=== PATIENT | female | born 1985 | race Caucasian/White ===

== ENCOUNTER 2017-04-14 09:35 | Emergency (ER) | payer SELFPAY ==
--- NOTE | ~2017-04-14 | ER ---
PATIENT'S NAME: JANKI REN [facility] AGE: 31 Y [address] ROOM: [place] [address] LOCATION: [facility] ADMIT DATE: 04/14/2017 ER/Outpatient Report DISCHARGE DATE: 04/14/2017 FAMILY PHYSICIAN: Colten Miller MD ATTENDING PHYSICIAN: Justin Browning CHIEF COMPLAINT: Left ankle pain. HISTORY OF PRESENT ILLNESS: The patient states that she rolled her ankle on the way into work on Friday around 11:30 in the morning. She was seen at [facility] for x-rays on Friday. She feels as though it is not improving like they said it would, so she came here. She has been using crutches. She has been intermittently using an Jaison wrap. She has taken some ibuprofen. She has been trying to keep off it. She has not followed up with her primary care provider. PAST MEDICAL HISTORY: Documented on the record and reviewed by me. SOCIAL HISTORY: Documented on the record and reviewed by me. MEDICATIONS: Documented on the record and reviewed by me. ALLERGIES: DOCUMENTED ON THE RECORD AND REVIEWED BY ME. REVIEW OF SYSTEMS: All systems were reviewed and negative except as noted in the HPI. PHYSICAL EXAMINATION: VITAL SIGNS: Blood pressure 116/71, pulse 72, respiratory rate 16, temperature 97.2, and SpO2 is 95% on room air. Pain is rated 8/10. GENERAL: An age appropriate female, upright on the exam table, in no apparent pain or distress. HEENT: Normocephalic and atraumatic. Eyes are PERRL. Oropharynx is clear. NECK: Supple. CHEST: Even and unlabored respirations. Heart rate is regular. ABDOMEN: Obese, but otherwise normal to inspection. EXTREMITIES: Well formed and well perfused. The left ankle is notable for tenderness at the lateral malleolus with some edema. No ecchymosis appreciated. No erythema or warmth appreciated at the joint. There is a mild PATIENT'S NAME: JANKI REN [facility] AGE: 31 Y [address] ROOM: [place] [address] LOCATION: [facility] ADMIT DATE: 04/14/2017 ER/Outpatient Report DISCHARGE DATE: 04/14/2017 FAMILY PHYSICIAN: Colten Miller MD ATTENDING PHYSICIAN: Justin Browning limitation of the range of motion of the joint, but no ligamentous instability on stressing of the joint. The foot is otherwise neurovascularly intact. SKIN: Grossly intact otherwise. LABORATORY DATA AND X-RAYS: Plain films of the left ankle were obtained as well as the tib-fib. I reviewed them, saw no fracture, and also confirmed with Radiology. EMERGENCY DEPARTMENT COURSE: We placed the patient in a walking boot after I demonstrated appropriate technique for wrapping the foot. Discussed strategies to minimize edema of the foot. Activity as tolerated. 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 She should follow up on or Friday if not noting significant improvement with the above strategies as well as scheduled ibuprofen and Tylenol. MD BILL FLORENCE/abimael /[id number] d: 04/14/17 1205 t: 04/29/17 0909, OUTPATIENT REPORT
== END 2017-04-14 10:43 | disposition disaster alternative care site (69) ==
LOC: GACC 09:35
DX: M25.572 Pain in left ankle and joints of left foot (principal); I10 Essential (primary) hypertension; F20.9 Schizophrenia, unspecified; F31.9 Bipolar disorder, unspecified; F17.210 Nicotine dependence, cigarettes, uncomplicated; F41.9 Anxiety disorder, unspecified; Z90.89 Acquired absence of other organs; Z88.0 Allergy status to penicillin; Z88.1 Allergy status to other antibiotic agents; Z79.899 Other long term (current) drug therapy

== ENCOUNTER 2017-04-18 09:27 | Emergency (ER) | payer SELFPAY ==
--- NOTE | ~2017-04-18 | ER ---
PATIENT'S NAME: ERICA SANCHEZ [facility] AGE: 31 Y [address] ROOM: [place] [address] LOCATION: ED ADMIT DATE: 04/18/2017 ER/Outpatient Report DISCHARGE DATE: 04/18/2017 FAMILY PHYSICIAN: Colten Miller MD ATTENDING PHYSICIAN: Latoya Uribe Time of Arrival: 0927 hours. Time of Evaluation: 0946 hours. IDENTIFICATION: A 31-year-old female. CHIEF COMPLAINT: Right foot swelling. HISTORY OF PRESENT ILLNESS: The patient is a 31-year-old female, who injured her left ankle on Friday on her way to work around 11:30 a.m. She was evaluated at [facility] with negative x-rays, placed in the Jaison wrap, and then came into our emergency room on April 14, 2017. She was seen and evaluated, had an x-ray, which was negative for fracture, placed in a walking boot and was discharged home. Today, she has had some numbness and tingling in that foot and is having pain and swelling. No new injury. ALLERGIES: TO AMOXICILLIN AND PENICILLIN. CURRENT MEDICATIONS: 1. Wellbutrin. 2. Klonopin. 3. Latuda. 4. Propranolol. 5. Motrin. 6. Tylenol. MEDICAL PROBLEMS: Bipolar disease, hypertension, chronic back pain. SOCIAL HISTORY: The patient is living at [facility] here in [place]. Tobacco use, the patient denies. Old records reflect history of tobacco use. Alcohol use, denies. Drug use, denies. FAMILY HISTORY: No pertinent family history. PATIENT'S NAME: JANKI REN [facility] AGE: 31 Y [address] ROOM: [place] [address] LOCATION: ED ADMIT DATE: 04/18/2017 ER/Outpatient Report DISCHARGE DATE: 04/18/2017 FAMILY PHYSICIAN: Colten Miller MD ATTENDING PHYSICIAN: Latoya Uribe REVIEW OF SYSTEMS: All systems reviewed and negative other than what is noted in the HPI. PHYSICAL EXAMINATION: VITAL SIGNS: Height 5 feet 5 inches, weight 133.9 kg, blood pressure 149/63, pulse 78, respirations 16, temperature 98.5, and saturations 97% on room air. GENERAL: A 31-year-old female, in no acute distress. EXTREMITIES: Right lower extremity neurovascularly intact. Full range of motion. No deformities. Left lower extremity, neurovascularly intact. She has soft tissue swelling over the lateral malleolus, tender to palpation. Anterior talofibular ligament, no ligamentous laxity. No bruising or ecchymosis and no redness. I did review the reports. LABORATORY DATA AND X-RAYS: X-rays on April 14, 2017 of left ankle, soft tissue swelling, no fracture; tib- fib, soft tissue swelling at the ankle, no fracture. IMPRESSION: Left ankle sprain. PLAN: Ice, elevate. Continue with boot walker and crutches, Weightbear with boot as tolerated. Tylenol or Advil for pain. Follow up [facility]. Follow up sooner if any problems or concerns. The patient is requesting additional pain medication. I advised that we would not be prescribing her narcotic pain medication for this. She also wanted a note for [facility] thinking that she had to be off this. I did recommend that she ice and elevate it as much as possible. Weight bear as tolerates. No prolonged standing and no lifting. The patient understood these directions but was not completely satisfied as she wanted a note to remain off her feet as well as some additional pain medication. LATOYA URIBE MD CAR/modl /[id number] d: 04/18/178 t: 04/19/17 1244, OUTPATIENT REPORT
== END 2017-04-18 10:10 | disposition disaster alternative care site (69) ==
LOC: GMED 09:27
DX: S93.402A Sprain of unspecified ligament of left ankle, initial encounter (principal); I10 Essential (primary) hypertension; F31.9 Bipolar disorder, unspecified; Z88.0 Allergy status to penicillin; Z88.1 Allergy status to other antibiotic agents; X58.XXXA Exposure to other specified factors, initial encounter; Z79.899 Other long term (current) drug therapy